=== PATIENT | female | born 1975 | race African-American/Black ===

== ENCOUNTER 2016-04-06 11:02 | Day surgery (SDC) | payer OTHER ==
[~2016-04-06] VITALS: Ht 163.8 cm; Wt 104.3 kg
[~2016-04-06 11:02] MED LIST: IRON325 M1 PO; MOTRIN800 MG PO
[2016-04-06 11:24] VITALS: BP 135/78
[2016-04-06 14:40] VITALS: BP 135/75
[2016-04-06 15:30] VITALS: BP 140/76
[2016-04-09 09:46] LABS: INTERNAL CONTROL VALID? YES
== END 2016-04-06 15:50 | disposition home or self-care (01) ==
LOC: SDC 11:02
PROVIDERS: Obstetrics & Gynecology
PROC: 0UDB8ZX Extraction of Endometrium, Via Natural or Artificial Opening Endoscopic, Diagnostic (ICD-10-PCS; principal; 2016-04-06)
DX: N92.0 Excessive and frequent menstruation with regular cycle (principal); N94.6 Dysmenorrhea, unspecified; D50.9 Iron deficiency anemia, unspecified; D25.9 Leiomyoma of uterus, unspecified; M79.1 Myalgia; E66.01 Morbid (severe) obesity due to excess calories; Z68.41 Body mass index [BMI] 40.0-44.9, adult; Z88.2 Allergy status to sulfonamides; Z88.5 Allergy status to narcotic agent; Z83.49 Family history of other endocrine, nutritional and metabolic diseases; Z82.61 Family history of arthritis
CPT/HCPCS: 84703; 88305; J0690; J1100; J1170; J1885; J2250; J2405; J3010

== ENCOUNTER 2016-06-25 07:38 | Inpatient (IN) | payer OTHER ==
[~2016-06-25] VITALS: Ht 162.6 cm; Wt 104.3 kg
[~2016-06-25 07:38] MED LIST changes: +DIPROSONE 0.05%15 G1 TP; +PRENATAL TABLE1 EAC3 PO; +PRILOSEC20 MG PO
[2016-06-25 08:18] VITALS: BP 134/93
[2016-06-25 08:20] VITALS: BP 134/93
[2016-06-25 08:42] LABS: BASOPHIL COUNT 0.1 K/uL (0-0.1); EOSINOPHIL (%) 1.3 % (0-5); EOSINOPHIL COUNT 0.1 K/uL (0-0.3); HEMATOCRIT 33.6 % (36.0-46.0); IMMATURE GRANULOCYTE (%) 0.3 % (0.0-0.7); INSTRUMENT ABS NEUTROPHIL CT 7.9 K/uL; LYMPHOCYTE COUNT 1.5 K/uL (1.0-2.8); MCH 27.8 PG (29.0-34.0); MCV 89.8 FL (83-99); MEAN PLAT.VOLUME 10.7 uM^3 (9.5-12.4); MONOCYTE (%) 6.3 % (3-12); MONOCYTE COUNT 0.7 K/uL (0-0.8); NEUTROPHIL (%) 77.2 % (45-76); NEUTROPHIL COUNT 7.9 K/uL (1.8-6.4); PLATELET COUNT 387 K/uL (156-360); RBC DIS.WIDTH-CV 13.2 % (11.8-14.6); RBC DIS.WIDTH-SD 43.7 % (39-53); RED BLOOD COUNT 3.74 M/uL (3.80-5.20); WHITE BLOOD COUNT 10.3 K/uL (4.1-10.2)
[2016-06-25 14:21] VITALS: BP 115/67
[2016-06-25 20:00] VITALS: BP 128/71
[2016-06-25 21:23] VITALS: BP 108/66
[2016-06-26] VITALS (7 sets, daily range): BP systolic 11–158; BP diastolic 58–67
[2016-06-26 07:48] LABS: HEMATOCRIT 27.4 % (36.0-46.0); MCH 28.4 PG (29.0-34.0); MCHC 31.4 G/DL (30.0-36.0); MCV 90.4 FL (83-99); MEAN PLAT.VOLUME 11.3 uM^3 (9.5-12.4); PLATELET COUNT 357 K/uL (156-360); RBC DIS.WIDTH-CV 13.6 % (11.8-14.6); RBC DIS.WIDTH-SD 44.7 % (39-53); RED BLOOD COUNT 3.03 M/uL (3.80-5.20); WHITE BLOOD COUNT 11.5 K/uL (4.1-10.2)
[2016-06-27 04:22] VITALS: BP 116/67
[2016-06-27 07:45] VITALS: BP 132/86
[2016-06-27] MEDS ORDERED: HYDROMORPHONE HC2 MG PO (08:07)
== END 2016-06-27 13:10 | disposition home or self-care (01) | DRG 742 ==
LOC: 2SOUTH 07:38 → 2EASTP 07:38 → 2SOUTH 09:52 → 2EASTP 14:16 → 2SOUTH 15:31 → 2EASTP 06-27 13:10
PROVIDERS: Obstetrics & Gynecology
DX: D25.9 Leiomyoma of uterus, unspecified (principal); Z68.41 Body mass index [BMI] 40.0-44.9, adult; N92.0 Excessive and frequent menstruation with regular cycle; N94.6 Dysmenorrhea, unspecified; D50.0 Iron deficiency anemia secondary to blood loss (chronic); K21.9 Gastro-esophageal reflux disease without esophagitis; E66.01 Morbid (severe) obesity due to excess calories; Z88.2 Allergy status to sulfonamides; Z88.5 Allergy status to narcotic agent
CPT/HCPCS: 84702; 85025; 85027; 86850; 86900; 86901; 88307; 94799; J0330; J0690; J1100; J1170; J1885; J2250; J2270; J2405; J2710; J2765; J3010; J7120